=== PATIENT | female | born 2000 | race African-American/Black ===

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

== ENCOUNTER 2019-07-12 21:18 | Emergency (ER) | payer SELFPAY ==
[2019-07-12 21:28] VITALS: BP 122/79; PULSE 89; TEMP 98.2; BMI 29.0
[2019-07-12] MEDS ORDERED: AZITHROMYCIN 500 MG TABLET PO ONE (21:41)
[2019-07-12] MEDS ORDERED: cefTRIAXone SODIUM 1 GM VIAL ONE (21:46)
[2019-07-12] MEDS ORDERED: AZITHROMYCIN 250 MG TABLET ONE (21:46)
[2019-07-12] MEDS ORDERED: LIDOCAINE HCL 1%, 10 MG/ML (20ML VIAL) ONE (21:47)
--- NOTE | 2019-07-12 21:59 | PDOC ---
History of Present Illness - General Chief Complaint: Vaginal Sxs Stated Complaint: POSSIBLE STD Time Seen by Provider: 07/12/19 21:30 History Source: Patient Exam Limitations: No Limitations - History of Present Illness Travel History: No Initial Comments: 07/12/19 21:37 HISTORY OF PRESENT ILLNESS: This is a 19-year-old woman presents emergency department for evaluation of potential STI infection. Patient reports she had unprotected oral and vaginal intercourse with a male partner last week and was told by another 1 of his partners that she had tested positive for an STD. Patient is unsure what the positive test was for or if the individuals were treated. Patient reports having sex with other people since that encounter last week. Patient reports she intermittently uses barrier protection during intercourse. She reports she did not use barrier protection when having intercourse with the potentially infected individual. Patient endorses past medical history of chlamydia and now endorses a green vaginal discharge. Patient also endorses dysuria and urinary frequency. No recent travel or sick contacts. PAST MEDICAL HISTORY: Denies past medical history SURGICAL HISTORY: Denies ALLERGIES: No known drug allergies REVIEW OF SYSTEMS General/Constitutional: Denies fever or chills. Denies weakness, weight change. HEENT: Denies change in vision. Denies ear pain or discharge. Denies sore throat. Cardiovascular: Denies chest pain or shortness of breath. Respiratory: Denies cough, wheezing, or hemoptysis. Gastrointestinal: Denies nausea, vomiting, diarrhea or constipation. Denies rectal bleeding. Genitourinary: See HPI Musculoskeletal: Denies joint or muscle swelling or pain. Denies neck or back pain. Skin and breasts: Denies rash or easy bruising. Neurologic: Denies headache, vertigo, loss of consciousness, or loss of sensation. Psychiatric: Denies depression or anxiety. Endocrine: Denies increased thirst. Denies abnormal weight change. Hematologic/Lymphatic: Denies anemia, easy bleeding, or history of blood clots. Allergic/Immunologic: Denies hives or skin allergy. Denies latex allergy. PHYSICAL EXAM General Appearance: Well-appearing, appropriately dressed. No apparent distress , no intoxication. HEENT: EOMI, PERRLA, normal ENT inspection, normal voice, TMs normal, pharynx normal. No conjunctival pallor. No photophobia, scleral icterus. Neck: Supple. Trachea midline. No tenderness, rigidity, carotid bruit, stridor , lymphadenopathy, or thyromegaly. Respiratory/Chest: Lungs CTAB. No shortness of breath, chest tenderness, respiratory distress, accessory muscle use. No crackles, rales, rhonchi, stridor , wheezing, dullness Cardiovascular: RRR. S1, S2. No JVD, murmur, bradycardia, tachycardia. Vascular Pulses: Dorsalis-Pedis (R): 2+, Dorsalis-Pedis (L): 2+ Gastrointestinal/Abdominal: Normal bowel sounds. Abdomen soft, non-distended. No tenderness or rebound tenderness. No organomegaly, pulsatile mass, guarding, hernia, hepatomegaly, splenomegaly. Lymphatic: No adenopathy, tenderness. Musculoskeletal/Extremities: Normal inspection. FROM of all extremities, normal capillary refill. Pelvis Stable. No CVA tenderness. No tenderness to extremities, pedal edema, swelling, erythema or deformity. Integumentary: Appropriate color, dry, warm. 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 Fully oriented, alert. Appropriate mood/affect. Motor strength 5/5. No appreciable EOM palsy, facial droop or sensory deficit. Past History - Past Medical History Allergies/Adverse Reactions: Allergies Allergy/AdvReac Type Severity Reaction Status Date / Time No Known Allergies Allergy Verified 07/12/19 21:58 Home Medications: Ambulatory Orders Vitamins (Sjr) - 1 tab PO DAILY 10/31/17 Acetaminophen [Tylenol .Regular Strength -] 650 mg PO Q3H PRN tablet 11/02/17 Ferrous Sulfate [Feosol] 325 mg PO DAILY #30 tab 11/02/17 Ibuprofen [Motrin -] 200 mg PO Q4H PRN tablet 11/02/17 Cephalexin Monohydrate [Keflex -] 500 mg PO BID 7 Days #14 capsule 07/12/19 metroNIDAZOLE 0.75% GEL [Metrogel 0.75% Gel -] 1 appful TP HS 5 Days #5 applic 07/12/19 Asthma: No Cancer: No Cardiac Disorders: No COPD: No Diabetes: No HTN: No Psychiatric Problems: Yes (ANXIETY, SCHIZOPHRENIA, MOOD DISORDER) Seizures: No Thyroid Disease: No - Immunization History Immunization Up to Date: No - Psycho Social/Smoking Cessation Hx Smoking History: Never smoked Have you smoked in the past 12 months: No Hx Alcohol Use: No Drug/Substance Use Hx: No Substance Use Type: None Hx Substance Use Treatment: No *Physical Exam - Vital Signs Last Vital Signs Temp Pulse Resp BP Pulse Ox 98.2 F 89 20 122/79 0 L 07/12/19 21:25 07/12/19 21:25 07/12/19 21:25 07/12/19 21:25 07/12/19 21:25 - Physical Exam Comments:: 07/12/19 21:59 RN Lincoln present as cinder man during pelvic exam. Female Pelvic Exam: positive: normal external exam, cervical os closed, discharge (Malodorous green discharge present from cervix), other (Mild cervical erythema present. No appearance of a strawberry cervix noted.). negative: CMT, lesions, Bartholin mass, adnexal tenderness Medical Decision Making - Medical Decision Making 07/12/19 21:39 A/P: 19-year-old woman here for STD testing patient reports she will not wait for HIV results and is requesting that the HIV test be deferred at this time. Patient reports she will return to her primary doctor or the emergency department for HIV testing. GC, RPR, UA, urine , urine culture Ceftriaxone 250 mg IM now Azithromycin 1 g orally now Discharge home Discharge - Discharge Information Problems reviewed: Yes Clinical Impression/Diagnosis: Exposure to STD UTI (urinary tract infection) Qualifiers: Urinary tract infection type: acute cystitis Hematuria presence: without hematuria Qualified Code(s): N30.00 - Acute cystitis without hematuria Condition: Stable Disposition: HOME - Admission No - Additional Discharge Information Prescriptions: Cephalexin Monohydrate [Keflex -] 500 mg PO BID 7 Days #14 capsule metroNIDAZOLE 0.75% GEL [Metrogel 0.75% Gel -] 1 appful TP HS 5 Days #5 applic - Follow up/Referral - Patient Discharge Instructions Patient Printed Discharge Instructions: DI for Urinary Tract Infection (UTI) Additional Instructions: You been treated today with azithromycin 1 g by mouth for treatment of presumed chlamydia You have been treated with Rocephin 250 mg injection for treatment of presumned gonorrhea. You are being sent home on Keflex antibiotics for UTI The syphilis test, gonorrhea and chlamydia testing will not be completed for the next few days. You may call [phone] and leave message for return phone call with lab results. Be sure to be clear with your name, birthdate, and phone number Always use condoms with the partners Followup with [facility] or PMD in one week for reevaluation and retesting. - Post Discharge Activity
[2019-07-12 22:42] LABS: EPI CELLS 34.2 /HPF (0-5/HPF); HYALINE CASTS 212 /lpf (0-8); URINE APPEARANCE CLOUDY; URINE BACTERIA 286.5 /hpf (NEGATIVE); URINE BILIRUBIN NEGATIVE (NEGATIVE); URINE COLOR YELLOW; URINE GLUCOSE (UA) NEGATIVE (NEGATIVE); URINE KETONE 2+ (NEGATIVE); URINE LEUK ESTERASE 2+ (NEGATIVE); URINE NITRITE NEGATIVE (NEGATIVE); URINE PROTEIN 1+ (NEGATIVE); URINE RBC 3 /hpf (0-4); URINE WBC 124 /hpf (0-5)
== END 2019-07-12 23:20 | disposition home or self-care (01) ==
LOC: JERFT 21:18
DX: Z20.2 Contact with and (suspected) exposure to infections with a predominantly sexual mode of transmission (principal); N30.00 Acute cystitis without hematuria; F41.9 Anxiety disorder, unspecified; F20.9 Schizophrenia, unspecified; F39 Unspecified mood [affective] disorder
CPT/HCPCS: 36415; 81003; 84703; 86593; 87070; 87077; 87086; 87205; 87491; 87591; 87661; 99284-25

== ENCOUNTER 2020-05-28 18:35 | Emergency (ER) | payer OTHER ==
[2020-05-28 18:49] VITALS: BP 111/81; PULSE 100; TEMP 97.9; BMI 32.8
[2020-05-28] MEDS ORDERED: IBUPROFEN 400 MG TABLET (FP) PO ONE (19:49)
[2020-05-28] MEDS ORDERED: ACETAMINOPHEN 325 MG TABLET (FP) PO ONE (19:50)
--- NOTE | 2020-05-28 19:56 | PDOC ---
History of Present Illness - General Chief Complaint: Pain Stated Complaint: STOMACH ACHE Time Seen by Provider: 05/28/20 18:51 History Source: Patient - History of Present Illness Timing/Duration: reports: constant Abdominal Pain Onset Location: reports: suprapubic Past History - Medical History Allergies/Adverse Reactions: Allergies Allergy/AdvReac Type Severity Reaction Status Date / Time No Known Allergies Allergy Verified 05/28/20 18:49 Home Medications: Ambulatory Orders Vitamins (Sjr) - 1 tab PO DAILY 10/31/17 Acetaminophen [Tylenol .Regular Strength -] 650 mg PO Q3H PRN tablet 11/02/17 Ferrous Sulfate [Feosol] 325 mg PO DAILY #30 tab 11/02/17 Ibuprofen [Motrin -] 200 mg PO Q4H PRN tablet 11/02/17 Cephalexin Monohydrate [Keflex -] 500 mg PO BID 7 Days #14 capsule 07/12/19 metroNIDAZOLE 0.75% GEL [Metrogel 0.75% Gel -] 1 appful TP HS 5 Days #5 applic 07/12/19 Asthma: No Cancer: No Cardiac Disorders: No COPD: No Diabetes: No HTN: No Psychiatric Problems: Yes (ANXIETY, SCHIZOPHRENIA, MOOD DISORDER) Seizures: No Thyroid Disease: No - Reproductive History Is Patient Now?: No Therapeutic (s) & number: No - Immunization History Immunization Up to Date: No - Psycho-Social/Smoking History Smoking History: Current every day smoker Have you smoked in the past 12 months: No Number of Cigarettes Smoked Daily: 10 Information on smoking cessation initiated: Yes - Substance Abuse Hx (Audit-C & DAST Scrn) How often the patient has a drink containing alcohol: 4 0r more times/wk Number of drinks the patient has on a typical day: 5 or 6 Score: In Men: 4 or > Positive; In Women: 3 or > Positive: 6 Screen Result (Pos requires Nsg. Audit-10AR): Positive In the last yr the pt used illegal drug/Rx for NonMed reason: No Score: Yes response is considered Positive: 0 Screen Result (Positive result requires Nsg. DAST-10): Negative Review of Systems - Review of Systems Constitutional: No: Chills, Fever ABD/GI: Yes: Abdominal cramping. No: Blood Streaked Bowels, Constipated, Diarrhea, Nausea, Rectal Bleeding, Vomiting : No: Burning, Dysuria, Frequency, Flank Pain, Hematuria, Lesions *Physical Exam - Vital Signs Last Vital Signs Temp Pulse Resp BP Pulse Ox 97.9 F 100 H 18 111/81 100 05/28/20 18:47 05/28/20 18:47 05/28/20 18:47 05/28/20 18:47 05/28/20 18:47 - Physical Exam 05/28/20 20:38 well rohit, sitting on chair, texting on phone General Appearance: Yes: Appropriately Dressed. No: Apparent Distress HEENT: positive: Normal Voice Neck: positive: Supple Respiratory/Chest: negative: Respiratory Distress Female Pelvic Exam: positive: normal external exam, cervical os closed, normal adnexa. negative: CMT, discharge, lesions, adnexal tenderness, vaginal bleeding Gastrointestinal/Abdominal: positive: Normal Bowel Sounds, Tender (minimal ttp to mid suprapubic, NT over mcburneys), Soft. negative: Distended, Guarding, Rebound Musculoskeletal: negative: CVA Tenderness Integumentary: positive: Dry, Warm Neurologic: positive: Fully Oriented, Alert, Normal Mood/Affect Medical Decision Making - Medical Decision Making 05/28/20 19:54 20-year-old female, , here with mid pelvic pain for 2 days that is constant and achy, better today. No dysuria, vaginal bleeding, vaginal discharge, nausea, vomiting, fever, chills or change in bowel movements. No known ovarian cysts or fibroids. No new sexual partners or history of STDs and states STD testing was normal several weeks ago. No history of similar pain. LMP normal ~2 weeks ago see exam Pelvic pain R/o preg, Unlikely PID, TOA or torsion given nl pelvic exam and unremarkable abd exam, r/o UTI, no ttp over RLQ to suggest appy -ua/cx -STD cxs sent (reports neg test ~2 weeks ago) - 05/28/20 21:09 Upreg and UA neg. On reassessment, patient exam is unchanged with minimal tenderness to mid suprapubic and remains non tender over RLQ. Patient remained well-appearing and stable here. Pt instructed to return to ED for any worsening of symptoms. Discharge - Discharge Information Problems reviewed: Yes Clinical Impression/Diagnosis: Pelvic pain Condition: Improved Disposition: HOME - Follow up/Referral - Patient Discharge Instructions Patient Printed Discharge Instructions: DI for Pelvic Pain Additional Instructions: The cause of your pain is unclear at this point as there is no concerning findings on your exam and your urine was normal. If symptoms worsen and or you develop new symptoms, return to the ER immediately. We did send off STD test and we will call you if anything is positive in 2 to 3 days. Otherwise you can call us at [phone] for results - Post Discharge Activity
[2020-05-28 20:46] LABS: URINE APPEARANCE CLEAR; URINE BILIRUBIN NEGATIVE (NEGATIVE); URINE COLOR YELLOW; URINE GLUCOSE (UA) NEGATIVE (NEGATIVE); URINE KETONE NEGATIVE (NEGATIVE); URINE LEUK ESTERASE NEGATIVE (NEGATIVE); URINE NITRITE NEGATIVE (NEGATIVE); URINE PROTEIN NEGATIVE (NEGATIVE)
[2020-05-28 20:51] LABS: HCG,QUALITATIVE URINE Negative
== END 2020-05-28 21:23 | disposition home or self-care (01) ==
LOC: JERFT 18:35
DX: R10.2 Pelvic and perineal pain (principal)
CPT/HCPCS: 36415; 81003; 84703; 87086; 87491; 87591; 99284-25

== ENCOUNTER 2020-12-11 18:22 | Emergency (ER) | payer OTHER ==
[2020-12-11 18:31] VITALS: BMI 33.5
[2020-12-11] MEDS ORDERED: SODIUM CHLORIDE 0.9% 500 ML INFUS.BAG IV ONE (18:43)
[2020-12-11 19:09] LABS: BASO % 0.5 % (0-2.0); EOS % 0.5 % (0-4.5); HEMATOCRIT 37.2 % (32.4-45.2); HEMOGLOBIN 12.7 GM/dL (10.7-15.3); LYMPH % 26.2 % (8-40); MCH 30.8 pg (25.7-33.7); MCHC 34.1 g/dl (32.0-36.0); MEAN CELL VOLUME 90.4 fl (80-96); MEAN PLT VOLUME 9.2 fl (7.5-11.1); MONO % 4.9 % (3.8-10.2); NEUT % 67.9 % (42.8-82.8); PLATELET COUNT 296 K/MM3 (134-434); RBC 4.11 M/mm3 (3.60-5.2); RDW 13.3 % (11.6-15.6); WHITE BLOOD COUNT 9.2 K/mm3 (4.0-10.0)
[2020-12-11 19:29] LABS: POTASSIUM 4.6 mmol/L (3.5-5.1)
[2020-12-11 19:31] LABS: CALCIUM 9.2 mg/dL (8.5-10.1)
[2020-12-11 19:32] LABS: BLOOD UREA NITROGEN 5.6 mg/dL (7-18)
[2020-12-11 19:35] LABS: CREATININE 0.6 mg/dL (0.55-1.3)
[2020-12-11 19:36] LABS: BILIRUBIN,TOTAL 0.4 mg/dL (0.2-1); TOT PROT 7.3 g/dl (6.4-8.2)
[2020-12-11 20:03] LABS: EPI CELLS >36 /uL (0-25.1); HYALINE CASTS 5 /uL (0-3.1); PH,URINE 8.5 (5.0-8.0); URINE APPEARANCE TURBID; URINE BACTERIA >9,000 /uL (0-1359); URINE BILIRUBIN NEGATIVE (NEGATIVE); URINE COLOR DK YELLOW; URINE GLUCOSE (UA) NEGATIVE (NEGATIVE); URINE KETONE TRACE (NEGATIVE); URINE LEUK ESTERASE 3+ (NEGATIVE); URINE NITRITE NEGATIVE (NEGATIVE); URINE PROTEIN 1+ (NEGATIVE); URINE RBC 18 /uL (0-23.9); URINE WBC 1885 /uL (0-25.8)
[2020-12-11] MEDS ORDERED: CEPHALEXIN MONOHYDRATE 500 MG CAPSULE (UD) PO ONE (20:05)
[2020-12-11] MEDS ORDERED: CEPHALEXIN MONOHYDRATE 500 MG CAPSULE (UD) ONE (20:08)
[2020-12-11 20:25] VITALS: BP 105/66; PULSE 88; TEMP 98
== END 2020-12-11 22:53 | disposition home or self-care (01) ==
LOC: JER 18:22
DX: O23.43 Unspecified infection of urinary tract in pregnancy, third trimester (principal); Z3A.28 28 weeks gestation of pregnancy
CPT/HCPCS: 36415; 76815; 80053; 81003; 85025; 87086; 87186; 93005; 93010; 99285-25

== ENCOUNTER 2023-01-01 15:51 | Emergency (ER) | payer OTHER ==
[2023-01-01 16:11] VITALS: TEMP 98.8; BMI 33.9
[2023-01-01] MEDS ORDERED: ACETAMINOPHEN 1000 MG/100 ML BAG IVPB ONE (16:48)
[2023-01-01] MEDS ORDERED: ACETAMINOPHEN INJECTION 100 ML IVPB ONE (16:57)
[2023-01-01 17:44] LABS: BASO % 0.9 % (0-2.0); EOS % 1.2 % (0-4.5); HEMATOCRIT 36.2 % (32.4-45.2); HEMOGLOBIN 12.6 GM/dL (10.7-15.3); MCH 30.3 pg (25.7-33.7); MCHC 34.8 g/dl (32.0-36.0); MEAN CELL VOLUME 86.9 fl (80-96); MEAN PLT VOLUME 9.2 fl (7.5-11.1); MONO % 5.6 % (3.8-10.2); NEUT % 60.3 % (42.8-82.8); PLATELET COUNT 265 10^3/uL (134-434); RBC 4.17 M/mm3 (3.60-5.2); RDW 13.8 % (11.6-15.6); WHITE BLOOD COUNT 8.8 K/mm3 (4.0-10.0)
[2023-01-01 18:14] LABS: BLOOD UREA NITROGEN 4.3 mg/dL (7-18); CALCIUM 8.9 mg/dL (8.5-10.1)
[2023-01-01 18:17] LABS: CREATININE 0.7 mg/dL (0.55-1.3)
[2023-01-01 18:18] LABS: ALBUMIN 3.7 g/dl (3.4-5.0); BILIRUBIN,TOTAL 0.5 mg/dL (0.2-1); TOT PROT 7.7 g/dl (6.4-8.2)
[2023-01-01 18:53] LABS: BASO % 0.5 % (0-2.0); EOS % 0.6 % (0-4.5); HEMATOCRIT 34.8 % (32.4-45.2); HEMOGLOBIN 11.8 GM/dL (10.7-15.3); LYMPH % 22.8 % (8-40); MCH 29.7 pg (25.7-33.7); MEAN CELL VOLUME 87.5 fl (80-96); MEAN PLT VOLUME 8.7 fl (7.5-11.1); MONO % 5.5 % (3.8-10.2); NEUT % 70.6 % (42.8-82.8); PLATELET COUNT 250 10^3/uL (134-434); RBC 3.98 M/mm3 (3.60-5.2); RDW 13.5 % (11.6-15.6); WHITE BLOOD COUNT 8.8 K/mm3 (4.0-10.0)
[2023-01-01 20:13] VITALS: BP 130/82; PULSE 84; RESP 18
== END 2023-01-01 20:13 | disposition home or self-care (01) ==
LOC: JER 15:51
PROC: 3E0333Z Introduction of Anti-inflammatory into Peripheral Vein, Percutaneous Approach (ICD-10-PCS; principal; 2023-01-01)
DX: O20.9 Hemorrhage in early pregnancy, unspecified (principal); O99.611 Diseases of the digestive system complicating pregnancy, first trimester; R10.30 Lower abdominal pain, unspecified; Z3A.01 Less than 8 weeks gestation of pregnancy
CPT/HCPCS: 36415; 76817-TC; 80053; 84702; 85025; 86850; 86870; 86900; 86901; 86902; 99284-25

== ENCOUNTER 2023-11-16 14:46 | Emergency (ER) | payer OTHER ==
[2023-11-16 15:01] VITALS: BMI 29.2
[2023-11-16] MEDS: ACETAMINOPHEN 1000 MG/100 ML BAG IVPB ONE ×2 (15:30→20:18)
[2023-11-16] MEDS ORDERED: ACETAMINOPHEN INJECTION 100 ML IVPB ONE ×2 (15:35→20:14)
[2023-11-16 15:52] LABS: HEMATOCRIT 28.9 % (32.4-45.2); HEMOGLOBIN 9.8 GM/dL (10.7-15.3); MCH 30.5 pg (25.7-33.7); MCHC 33.9 g/dl (32.0-36.0); MEAN CELL VOLUME 90.1 fl (80-96); MEAN PLT VOLUME 8.3 fl (7.5-11.1); PLATELET COUNT 431 10^3/uL (134-434); RDW 14.9 % (11.6-15.6); WHITE BLOOD COUNT 18.6 K/mm3 (4.0-10.0)
[2023-11-16] MEDS ORDERED: morphine SULFATE 4 MG/ML VIAL ONE (16:07)
[2023-11-16 16:16] LABS: POTASSIUM 3.4 mmol/L (3.5-5.1)
[2023-11-16 16:18] LABS: CALCIUM 8.5 mg/dL (8.5-10.1)
[2023-11-16 16:19] LABS: ALBUMIN 1.8 g/dl (3.4-5.0)
[2023-11-16] MEDS: SODIUM CHLORIDE 0.9% 500 ML INFUS.BAG IV ONE ×2 (16:19→21:56)
[2023-11-16 16:22] LABS: CREATININE 0.6 mg/dL (0.55-1.3)
[2023-11-16 16:24] LABS: BILIRUBIN,TOTAL 0.3 mg/dL (0.2-1); TOT PROT 6.6 g/dl (6.4-8.2)
[2023-11-16] MEDS ORDERED: POTASSIUM CHLORIDE ORAL LIQUID 20 MEQ/15 ML ONE (17:12)
[2023-11-16] MEDS: POTASSIUM CHLORIDE ORAL LIQUID 20 MEQ/15 ML PO ONE (17:16)
[2023-11-16] MEDS: morphine CARPU-JECT 4 MG/1 ML DISP.SYRIN IVPUSH ONE (17:40)
[2023-11-16] MEDS ORDERED: CEFEPIME 2 GM/100 ML BAG IVPB ONE (21:02)
[2023-11-16] MEDS: CEFEPIME HCL 2 GM VIAL (RESTRICTED TO ID) IVPB ONE (21:11)
[2023-11-16 21:52] VITALS: RESP 16
[2023-11-16 23:24] VITALS: BP 98/60; PULSE 101; TEMP 98.4
== END 2023-11-16 23:37 | disposition short-term general hospital (02) ==
LOC: JER 14:46
PROC: 3E03329 Introduction of Other Anti-infective into Peripheral Vein, Percutaneous Approach (ICD-10-PCS; principal; 2023-11-16)
PROC: 3E033GC Introduction of Other Therapeutic Substance into Peripheral Vein, Percutaneous Approach (ICD-10-PCS; 2023-11-16)
PROC: 3E033NZ Introduction of Analgesics, Hypnotics, Sedatives into Peripheral Vein, Percutaneous Approach (ICD-10-PCS; 2023-11-16)
DX: O99.891 Other specified diseases and conditions complicating pregnancy (principal); H92.01 Otalgia, right ear; H60.501 Unspecified acute noninfective otitis externa, right ear; H70.001 Acute mastoiditis without complications, right ear; Z3A.24 24 weeks gestation of pregnancy; Z20.822 Contact with and (suspected) exposure to COVID-19
CPT/HCPCS: 0241U-QW; 36415; 70481-TC; 76815; 80053; 82962; 84702; 85025; 93005; 93010; J0131; Q9967

== ENCOUNTER 2024-07-08 19:09 | Emergency (ER) | payer OTHER ==
[2024-07-08 19:45] VITALS: BMI 27.2
[2024-07-08] MEDS ORDERED: ACETAMINOPHEN 325 MG TABLET (FP) ONE (20:38)
[2024-07-08] MEDS: ACETAMINOPHEN 325 MG TABLET (FP) PO ONE (20:43)
[2024-07-08 21:51] LABS: EPI CELLS >36 /uL (0-25.1); HYALINE CASTS 4 /uL (0-3.1); PH,URINE 5.5 (5.0-8.0); URINE APPEARANCE TURBID; URINE BACTERIA >9,000 /uL (0-1359); URINE BILIRUBIN 2+ (NEGATIVE); URINE COLOR ORANGE; URINE GLUCOSE (UA) NEGATIVE (NEGATIVE); URINE KETONE 1+ (NEGATIVE); URINE LEUK ESTERASE 2+ (NEGATIVE); URINE NITRITE POSITIVE (NEGATIVE); URINE PROTEIN 2+ (NEGATIVE); URINE RBC 32 /uL (0-23.9); URINE WBC 1376 /uL (0-25.8)
[2024-07-08] MEDS ORDERED: CEPHALEXIN MONOHYDRATE 500 MG CAPSULE (UD) PO ONE (21:53)
[2024-07-08] MEDS ORDERED: CEPHALEXIN MONOHYDRATE 500 MG CAPSULE (UD) ONE (21:58)
[2024-07-08 22:10] VITALS: BP 101/65; PULSE 56; RESP 16; TEMP 98.9
== END 2024-07-08 22:11 | disposition home or self-care (01) ==
LOC: JER 19:09
DX: N39.0 Urinary tract infection, site not specified (principal); M79.10 Myalgia, unspecified site; R05.9 Cough, unspecified; R50.9 Fever, unspecified; R11.0 Nausea; R30.0 Dysuria; R63.0 Anorexia; M54.50 Low back pain, unspecified
CPT/HCPCS: 81003; 84703; 87086; 87186; 99283-25